=== PATIENT | male | born 1955 | race Caucasian/White ===

== ENCOUNTER → 2020-11-14 | Day surgery (SDC) | payer OTHER ==
[~2020-11-14] MED LIST: Glycopyrrolate 0.2 MG/ML SDV ONE; Ketamine 200 MG/20 ML MDV ONE; Lactated Ringers 1,000 ML IV SCH; Neostigmine Methylsulfate 10 MG/10 ML MDV ONE; Propofol 200 MG/20 ML SDV ONE; fentaNYL 100 MCG/2 ML SDV ONE
--- NOTE | 2020-11-14 13:26 | OR ---
DATE OF OPERATION: 11/14/2020 PREOPERATIVE DIAGNOSIS: 1. DYSPHAGIA. 2. COLON CANCER SCREENING. POSTOPERATIVE DIAGNOSIS: 1. DYSPHAGIA. 2. COLON CANCER SCREENING. SURGEON: Abel Bernabe MD PROCEDURE: 1. ESOPHAGOGASTRODUODENOSCOPY WITH BIOPSIES X4, RAPHAEL. 2. FULL-LENGTH COLONOSCOPY. ANESTHESIA: MAC. COMPLICATIONS: None. SPECIMEN: 1. Fundal biopsy x2. 2. Antral RAPHAEL. FINDINGS: 1. Full-length diagnostic EGD. 2. Severe and active gastritis with multiple erosions/ulcerations. 3. Normal full-length screening colonoscopy. RECOMMENDATIONS: The patient will be placed on appropriate treatment for his gastritis. He should have routine colonoscopy screenings every 10 years. INDICATIONS: The patient is due for a routine colonoscopy for colon cancer screening purposes. He has had some ongoing issues with dysphagia at times, and we elected to do an upper endoscopy as well. DESCRIPTION OF PROCEDURE: The patient was prepped and draped, placed in the left lateral decubitus position. A lubricated Olympus gastroscope was inserted over a bit, advanced to cricopharyngeus area and easily intubated into the esophagus. The esophageal lining appeared benign in its entire course. The Z- line was crisp and sharp around 44 cm. There was no hernia present. No spontaneous reflux seen. No distal esophagitis, stricturing, ulceration, or Cazares's changes identified. The scope was advanced into the stomach, through the pylorus, and into the second portion of the duodenum. The second portion of duodenum was benign. The duodenal bulb had some mild duodenitis and biopsy was taken for confirmation. The scope was brought back into the stomach. The upper fundus and cardia appeared benign. Upon straightening, the distal fundus and most of the antrum had active and dtcapgat-ia-[id number] gastritis, with a few erosions and ulcerations noted in the antrum. We did 2 biopsies of both the fundus and antrum and CLOtest was obtained as well. Air was then suctioned from the stomach and the scope was removed without complication. A lubricated Olympus colonoscope was inserted and easily advanced to the cecum. Direct visualization of the ileocecal valve and appendiceal orifice was accomplished. The bowel prep was adequate. Upon withdrawal of the scope throughout the entire length of the colon I could find no signs of polyps, masses, ulceration, or bleeding sites. There were no vascular abnormalities or signs of colitis. No significant signs of diverticula. The rectal vault was benign. Retroflexion showed no perianal lesions. Air was suctioned, the scope removed without complication. TRACE/ELAINE /[id number]
== END ==
LOC: CC.SDS 09:34
PROVIDERS: ATTEND Family Medicine
DX: Z12.11 Encounter for screening for malignant neoplasm of colon (principal); R13.10 Dysphagia, unspecified; K29.90 Gastroduodenitis, unspecified, without bleeding; K25.9 Gastric ulcer, unspecified as acute or chronic, without hemorrhage or perforation; K31.89 Other diseases of stomach and duodenum; N40.0 Benign prostatic hyperplasia without lower urinary tract symptoms; I10 Essential (primary) hypertension; E78.5 Hyperlipidemia, unspecified; Z79.82 Long term (current) use of aspirin; Z79.899 Other long term (current) drug therapy; Z98.890 Other specified postprocedural states
CPT/HCPCS: 00813; 87081; J2704; J2710; J3010; J3490; J7120

== ENCOUNTER 2021-09-21 10:25 | Emergency (ER) | payer OTHER ==
[2021-09-21] MEDS ORDERED: EPINEPHrine 1 MG/ML SDV IM PRN (11:18)
[2021-09-21] MEDS ORDERED: Famotidine 20 MG/2 ML SDV IVPUSH PRN (11:18)
[2021-09-21] MEDS ORDERED: diphenhydrAMINE 50 MG/ML SDV IVPUSH PRN (11:18)
[2021-09-21] MEDS ORDERED: methylPREDNISolone Sodium Succinate 125 MG/2 ML SDV IVPUSH PRN (11:18)
[2021-09-21] MEDS ORDERED: Sodium Chloride 0.9% 10 ML Syringe FLUSH SCH (11:30)
== END 2021-09-21 13:45 | disposition home or self-care (01) ==
LOC: CC.ED 10:25
DX: U07.1 COVID-19 (principal)
CPT/HCPCS: 36415; 80053; 85025; 86140; 99283; 99284; M0222; Q0222